=== PATIENT | female | born 1960 | race Hispanic/Latino ===

== ENCOUNTER 2025-01-05 13:12 | Inpatient (IN) | payer BC, OTHER ==
[2025-01-05] MEDS ORDERED: NA CHLORIDE 0.9% 500 ML ONE (13:44)
[2025-01-05] MEDS ORDERED: ACETAMINOPHEN 500 MG TAB ONE (13:44)
[2025-01-05 14:30] LABS: Specific Gravity > 1.030 (1.005-1.030); Sqamous Epithelial <5 /HPF (None Seen); Urine Bacteria <20 /HPF (<20); Urine Bilirubin NEGATIVE (Negative); Urine Blood Negative (Negative); Urine Clarity Clear (Clear); Urine Color Light-Yellow (Yellow); Urine Culture Reflex Order REFLEXED; Urine Glucose 4+ (Over) (Negative); Urine Ketones TRACE (Negative); Urine Microscopic Reflex YN ORDER UMIC; Urine Mucus Slight /HPF (None Seen); Urine Nitrite NEGATIVE (Negative); Urine Protein NEGATIVE (Negative); Urine Urobilinogen Normal (Normal); Urine pH 5.5 (5.0-7.0)
[2025-01-05 14:37] LABS: Albumin 3.6 g/dL (3.4-5.0); Albumin/Globulin Ratio 0.9 (1.1-1.8); Bilirubin Total 0.5 mg/dL (0.2-1.0); Globulin 3.9 g/dL (2.3-3.5); Protein, Total 7.5 g/dL (6.4-8.2)
[2025-01-05 14:59] LABS: Absolute Basophils 0.1 K/uL (0-0.5); Absolute Eosinophils 0.2 K/uL (0-0.5); Absolute Lymphocytes (CBC) 1.2 K/uL (0.7-4.9); Absolute Monocytes 0.5 K/uL (0.1-1.3); Absolute Neutrophil 8.2 K/uL (1.8-8.0); Basophils % 1.1 % (0-1.3); Eosinophils % 1.9 % (0-4.4); Hematocrit 40.5 % (36.0-45.0); Hemoglobin 13.7 g/dL (12.0-15.0); Lymphocytes % 11.7 % (15.3-44.8); MCH 29.1 pg (27.0-35.0); MCHC 33.9 g/dL (32.0-36.0); MCV 85.7 fL (80-100); MPV 8.1 fL (7.6-11.3); Monocytes % 5.3 % (3.3-12.3); Nucleated Red Blood Cells % 0.1 % (0-0); Platelets 217 thou/uL (152-406); RBC Red Blood Cell Count 4.72 M/uL (3.86-4.86); Red Cell Distribution Width 13.5 % (12.1-15.2)
--- NOTE | 2025-01-05 16:03 | RAD REPORT ---
EXAMINATION: UPPER EXTREMITY VENOUS UNILATE CLINICAL INDICATION: Female, 64 years old. [facility] MAIN Pain;Swelling Bed Name: 5 TECHNIQUE: Complete venous duplex sonography of the right upper extremity was performed. The examinat ion included compression for vein patency, color Doppler imaging and flow augmentation in response to distal compression of the internal jugular, brachiocephalic, subclavian, axillary, brachial, radia l, ulnar, cephalic and basilic veins. COMPARISON: No prior exam. FINDINGS: Duplex sonography testing of the veins of the right upper extremity is completed. Color flow imaging shows all veins to be compressible with appropriate color filling. Pulsatile and phasic flow is present within the upper extremity deep and superficial veins examined. Complex fluid collection with marginal soft tissue nodularity and hypervascularity along the medial upper arm measuring 3.3 x 2.1 cm in greatest dimensions. IMPRESSION: There is no deep vein or superficial vein thrombosis. Complex fluid collection underlying the area of palpable abnormality in the medial upper arm up to 3. 3 cm, may represent a developing abscess or seroma.
--- NOTE | 2025-01-05 16:22 | EDPHYS ---
Physician Documentation [facility] Name: Clementine Rodrigues Age: 64 yrs Sex: Female : 1960 Arrival Date: 01/05/2025 Time: 13:12 Bed 5 Private MD: ED Physician Anusha Allen HPI: 01/05 13:29 This 64 yrs old Female presents to ER via Unassigned with complaints of Arm sp3 Pain, Breathing Difficulty, Fever. 13:29 64-year-old female with history of hypertension, hyperlipidemia, diabetes now presents sp3 to the ED with chief complaint right medial distal upper arm swelling, erythema for 4 days after potentially having insect bite or some other event that occurred on . Patient saw her PCP on Monday who started Keflex. Subsequent to that patient swelling has continued to increase coupled with pain coupled with fever. She denies any other symptoms including headache, neck pain, URI symptoms, or [employer] symptoms, abdominal pain, vomiting, diarrhea, redness or rash anywhere else, prolonged immobilization, prior DVT or PE, travel history, known sick contacts, known allergies, or any other signs or symptoms on ROS at this time. Patient sees Dr. Jeannine Gaytan as PCP.. Historical: - Allergies: 13:36 No Known Allergies; hb - Home Meds: 13:36 Ozempic 0.25 mg or 0.5 mg (2 mg/3 mL) subcutaneous Pen Injector every week [Active]; hb ezetimibe-simvastatin 10-20 mg oral tablet daily [Active]; lisinopril-hydrochlorothiazide 20-12.5 mg oral tablet daily [Active]; cephalexin 500 mg Oral capsule [Active]; Jardiance 25 mg oral tablet daily [Active]; paroxetine HCl 20 mg oral tablet daily [Active]; - PMHx: 13:36 HTN; hb 13:39 DM2; hb - PSHx: 13:36 section; x 2; Appendectomy; hb - Immunization history:: Adult Immunizations. - Infectious Disease History:: Denies. - Social history:: Smoking status: Patient denies any tobacco usage or history of. ROS: 13:30 Eyes: Negative for injury, pain, redness, and discharge, ENT: Negative for injury, sp3 pain, and discharge, Neck: Negative for injury, pain, and swelling, Cardiovascular: Negative for chest pain, palpitations, and edema, Respiratory: Negative for shortness of breath, cough, wheezing, and pleuritic chest pain, Abdomen/GI: Negative for abdominal pain, nausea, vomiting, diarrhea, and constipation, Back: Negative for injury and pain, Neuro: Negative for headache, weakness, numbness, tingling, and seizure, Psych: Negative for depression, anxiety, suicide ideation, homicidal ideation, and hallucinations, Allergy/Immunology: Negative for hives, rash, and allergies, Endocrine: Negative for neck swelling, polydipsia, polyuria, polyphagia, and marked weight changes, Hematologic/Lymphatic: Negative for swollen nodes, abnormal bleeding, and unusual bruising, 13:30 All other systems are negative, sp3 Exam: 13:31 Constitutional: This is a well developed, well nourished patient who is awake, alert, sp3 and in no acute distress. Head/Face: Normocephalic, atraumatic. Eyes: Pupils equal round and reactive to light, extra-ocular motions intact. Lids and lashes normal. Conjunctiva and sclera are non-icteric and not injected. Cornea within normal limits. Periorbital areas with no swelling, redness, or edema. Neck: Trachea midline, no thyromegaly or masses palpated, and no cervical lymphadenopathy. Supple, full range of motion without nuchal rigidity, or vertebral point tenderness. No Meningismus. Chest/axilla: Normal chest wall appearance and motion. Nontender with no deformity. No lesions are appreciated. Cardiovascular: Regular rate and rhythm with a normal S1 and S2. No gallops, murmurs, or rubs. Normal PMI, no JVD. No pulse deficits. Respiratory: Lungs have equal breath sounds bilaterally, clear to auscultation and percussion. No rales, rhonchi or wheezes noted. No increased work of breathing, no retractions or nasal flaring. Abdomen/GI: Soft, non-tender, with normal bowel sounds. No distension or tympany. No guarding or rebound. No evidence of tenderness throughout. Back: No spinal tenderness. No costovertebral tenderness. Full range of motion. Neuro: Awake and alert, GCS 15, oriented to person, place, time, and situation. Cranial nerves II-XII grossly intact. Motor strength 5/5 in all extremities. Sensory grossly intact. Cerebellar exam normal. Normal gait. Psych: Awake, alert, with orientation to person, place and time. Behavior, mood, and affect are within normal limits. 13:31 Musculoskeletal/extremity: Patient with swelling, redness and warmth in the right distal upper arm proximal to the medial epicondyle of approximately 4 cm in diameter. Distal neurovascular exam is normal. No bony pain. Full range of motion in arm noted.. Vital Signs: 13:32 BP 158 / 91; Pulse 108; Resp 15; Temp 101.9(O); Pulse Ox 96% on R/A; Weight 89.36 kg; hb Height 5 ft. 4 in. ; Pain 9/10; 15:35 BP 106 / 83; Pulse 92; Resp 18; Temp 99.1(O); Pulse Ox 97% on R/A; hb 16:21 BP 112 / 76; Pulse 90; Resp 16; Pulse Ox 97% on R/A; hb 17:28 BP 131 / 96; Pulse 97; Resp 17; Pulse Ox 97% on R/A; hb 13:32 Body Mass Index 33.81 (89.36 kg, 162.56 cm) hb 13:32 Pain Scale: Adult hb MDM: 13:25 Medical Screening Exam initiated sp3 13:35 Data reviewed: vital signs, nurses notes, lab test result(s), radiologic studies. ED sp3 course: 64-year-old female with right arm pain, fever and swelling. Differential diagnosis includes DVT and localized cellulitis. No induration or bite jasbir or any symptoms noted. Patient not having chest pain or shortness of breath and clinically I am not highly suspicious of PE. Will obtain ultrasound right upper extremity and general labs and treat fever. Disposition pending workup and patient course.. 01/05 13:37 Order name: Blood Culture Adult (2) sp3 01/05 13:37 Order name: CBC with Diff; Complete Time: 15:20 sp3 01/05 13:37 Order name: CMP; Complete Time: 14:56 sp3 01/05 13:37 Order name: Lactate w/ 2H reflex if indic.; Complete Time: 14:56 sp3 01/05 14:06 Order name: Urinalysis w/ reflexes; Complete Time: 14:56 eb 01/05 14:52 Order name: Urine Culture EDAL 01/05 17:09 Order name: Basic Metabolic Panel EDMS 01/05 17:09 Order name: Basic Metabolic Panel EDMS 01/05 17:09 Order name: Basic Metabolic Panel EDMS 01/05 17:09 Order name: Basic Metabolic Panel EDMS 01/05 17:09 Order name: Basic Metabolic Panel EDMS 01/05 17:09 Order name: Basic Metabolic Panel EDMS 01/05 17:09 Order name: Basic Metabolic Panel EDMS 01/05 17:09 Order name: Basic Metabolic Panel EDMS 01/05 17:09 Order name: Magnesium EDMS 01/05 17:09 Order name: Magnesium EDMS 01/05 17:09 Order name: Magnesium EDMS 01/05 17:09 Order name: Magnesium EDMS 01/05 17:09 Order name: Magnesium EDMS 01/05 17:09 Order name: Magnesium EDMS 01/05 17:09 Order name: Magnesium EDMS 01/05 17:09 Order name: Magnesium EDMS 01/05 17:09 Order name: Phosphorus EDMS 01/05 17:09 Order name: Phosphorus EDMS 01/05 17:09 Order name: Phosphorus EDMS 04 17:09 Order name: Phosphorus EDMS 04 17:09 Order name: Phosphorus EDMS 01/05 17:09 Order name: Phosphorus EDMS 04 17:09 Order name: Phosphorus EDMS 04 17:09 Order name: Phosphorus EDMS 04 17:09 Order name: CBC with Automated Diff EDMS 04 17:09 Order name: CBC with Automated Diff EDMS 04 17:09 Order name: CBC with Automated Diff EDMS 01/05 17:09 Order name: CBC with Automated Diff EDMS 04 17:09 Order name: CBC with Automated Diff EDMS 01/05 17:09 Order name: CBC with Automated Diff EDMS 04 17:09 Order name: CBC with Automated Diff EDMS 04 17:09 Order name: CBC with Automated Diff EDMS 04 14:23 Order name: UPPER EXTREMITY VENOUS UNILATE; Complete Time: 16:07 EDMS 01/05 17:09 Order name: CONS Physician Consult EDMS 01/05 13:37 Order name: IV Saline Lock - Large Bore; Complete Time: 14:08 sp3 01/05 13:37 Order name: Labs collected and sent; Complete Time: 14:08 sp3 01/05 13:37 Order name: Vital Signs; Complete Time: 14:08 sp3 Administered Medications: 14:07 Drug: NS 0.9% IV 500 ml 500 ml IV at 1 bolus once; to be given as a bolus over 30 hb minutes Volume: 500 ml; Route: IV; Rate: 1 bolus; Site: left antecubital; 14:07 Drug: Acetaminophen PO 1000 mg PO once Route: PO; hb 16:45 Drug: Piperacillin-Tazobactam IVPB 3.375 grams IVPB once over 60 mins; (mix in NS 100 jb4 mL) Route: IVPB; Infused Over: 60 mins; Site: left antecubital; 17:45 Follow up: Response: No adverse reaction; IV Status: Completed infusion; IV Intake: jb4 100ml Disposition Summary: 01/05/25 16:21 Hospitalization Ordered Notes: Hospitalization Status: Observation sp3 Provider: Ronny Toledo sp3 Location: Telemetry/MedSurg (observation) sp3 Condition: Stable sp3 Problem: new sp3 Symptoms: have worsened sp3 Bed/Room Type: Standard sp3 Room Assignment: 205(01/05/25 17:27) em1 Diagnosis - Fever, right arm swelling versus abscess sp3 Forms: - Medication Reconciliation Form sp3 - SBAR form sp3 - Leadership Thank You Letter sp3 Signatures: Dispatcher [employer] em1 Stephanie Rincon RN RN Jenny Harley RN Pineda Santacruz RN RN jb4 Anusha Allen MD MD sp3 Corrections: (The following items were deleted from the chart) 13:30 13:30 Constitutional: Negative for fever, chills, and weight loss, Eyes: Negative for sp3 injury, pain, redness, and discharge, sp3 13:37 13:37 BLOOD CULTURE*+BA.LAB.BRZ ordered. EDMS EDMS 13:37 13:37 CBC+H.LAB.BRZ ordered. EDMS EDMS 13:37 13:37 COMPREHENSIVE METABOLIC PANEL+C.LAB.BRZ ordered. EDMS EDMS 13:37 13:37 LACTATE+C.LAB.BRZ ordered. EDMS EDMS 13:38 13:37 Extremity Venous Uni Ltd+US.RAD.BRZ ordered. EDMS EDMS 17:27 16:21 sp3 em1
--- NOTE | 2025-01-05 16:22 | ER ---
Nurse's Notes [facility] Name: Clementine Rodrigues Age: 64 yrs Sex: Female : 1960 Arrival Date: 01/05/2025 Time: 13:12 Bed 5 Private MD: Diagnosis: Fever, right arm swelling versus abscess Presentation: 01/05 13:32 Chief complaint: On cephalexin day 3 for sudden onset pain, redness, and swelling to hb RUE, fever started yesterday. Coronavirus screen: At this time, the client does not indicate any symptoms associated with coronavirus-19. Ebola Screen: No symptoms or risks identified at this time. Initial Sepsis Screen: Does the patient meet any 2 criteria? Temp <36.0*C (96.8*F)) or > 38.3*C (100.9*F). HR > 90 bpm. Yes Does the patient have a suspected source of infection? No. Patient's initial sepsis screen is negative. Risk Assessment: Do you want to hurt yourself or someone else? Patient reports no desire to harm self or others. Onset of symptoms was January 02, 2025. 13:32 Method Of Arrival: Ambulatory 13:32 Acuity: ALEXEI 2 hb Triage Assessment: 13:39 General: Appears in no apparent distress. uncomfortable, Behavior is calm, cooperative. hb Pain: Pain currently is 9 out of 10 on a pain scale. EENT: No signs and/or symptoms were reported regarding the EENT system. Neuro: Level of Consciousness is awake, alert, obeys commands, Oriented to person, place, time, situation. Cardiovascular: Patient's skin is warm and dry. Respiratory: Respiratory effort is even, unlabored, Respiratory pattern is regular, symmetrical. GI: No signs and/or symptoms were reported involving the gastrointestinal system. : No signs and/or symptoms were reported regarding the genitourinary system. Derm: Skin is pink, warm \T\ dry. redness and swelling noted to RUE. Musculoskeletal: No signs and/or symptoms reported regarding the musculoskeletal system. Historical: - Allergies: 13:36 No Known Allergies; hb - Home Meds: 13:36 Ozempic 0.25 mg or 0.5 mg (2 mg/3 mL) subcutaneous Pen Injector every week [Active]; hb ezetimibe-simvastatin 10-20 mg oral tablet daily [Active]; lisinopril-hydrochlorothiazide 20-12.5 mg oral tablet daily [Active]; cephalexin 500 mg Oral capsule [Active]; Jardiance 25 mg oral tablet daily [Active]; paroxetine HCl 20 mg oral tablet daily [Active]; - PMHx: 13:36 HTN; hb 13:39 DM2; hb - PSHx: 13:36 section; x 2; Appendectomy; hb - Immunization history:: Adult Immunizations. - Infectious Disease History:: Denies. - Social history:: Smoking status: Patient denies any tobacco usage or history of. Screenin:[address] [facility] ED Fall Risk Assessment (Adult) History of falling in the last 3 months, ph including since admission No falls in past 3 months (0 pts) Confusion or Disorientation No (0 pts) Intoxicated or Sedated No (0 pts) Impaired Gait No (0 pts) Mobility Assist Device Used No (0 pt) Altered Elimination No (0 pt) Score/Fall Risk Level 0 - 2 = Low Risk Oriented to surroundings, Maintained a safe environment, Hourly rounding (assess needs \T\ fall precautionary measures) done. Abuse screen: Denies threats or abuse. Denies injuries from another. Nutritional screening: No deficits noted. Tuberculosis screening: No symptoms or risk factors identified. Assessment: 13:40 General: See triage assessment . hb 14:34 Reassessment: Patient appears in no apparent distress at this time. Patient and/or hb family updated on plan of care and expected duration. Pain level reassessed. Patient is alert, oriented x 3, equal unlabored respirations, skin warm/dry/pink. 15:32 Reassessment: Patient appears in no apparent distress at this time. Patient and/or hb family updated on plan of care and expected duration. Pain level reassessed. Patient is alert, oriented x 3, equal unlabored respirations, skin warm/dry/pink. 16:21 Reassessment: Patient appears in no apparent distress at this time. Patient and/or hb family updated on plan of care and expected duration. Pain level reassessed. Patient is alert, oriented x 3, equal unlabored respirations, skin warm/dry/pink. Vital Signs: 13:32 BP 158 / 91; Pulse 108; Resp 15; Temp 101.9(O); Pulse Ox 96% on R/A; Weight 89.36 kg; hb Height 5 ft. 4 in. ; Pain 9/10; 15:35 BP 106 / 83; Pulse 92; Resp 18; Temp 99.1(O); Pulse Ox 97% on R/A; hb 16:21 BP 112 / 76; Pulse 90; Resp 16; Pulse Ox 97% on R/A; hb 17:28 BP 131 / 96; Pulse 97; Resp 17; Pulse Ox 97% on R/A; hb 13:32 Body Mass Index 33.81 (89.36 kg, 162.56 cm) hb 13:32 Pain Scale: Adult hb ED Course: 13:16 Patient arrived in ED. al6 13:19 Anusha Allen MD is Attending Physician. sp3 13:29 Arm band placed on Patient placed in an exam room, on a stretcher. ph 13:36 Triage completed. hb 13:39 First set of blood cultures drawn by me. hb 13:40 Patient has correct armband on for positive identification. Bed in low position. Call hb light in reach. Provided Education on: tests, result times. 14:01 Inserted saline lock: 20 gauge in left antecubital area, using aseptic technique. Blood hb collected. Flushed with 10 mL NS. 14:01 Initial lab(s) drawn, by me, sent to lab. Second set of blood cultures drawn by me. hb 14:08 Blood Culture Adult (2) Sent. hb 14:08 CBC with Diff Sent. hb 14:08 CMP Sent. hb 14:08 Lactate w/ 2H reflex if indic. Sent. hb 15:11 UPPER EXTREMITY VENOUS UNILATE In Process Unspecified. EDMS 16:21 Ronny Toledo is Hospitalizing Provider. sp3 17:27 Jenny Harley, RN is Primary Nurse. hb Administered Medications: 14:07 Drug: NS 0.9% IV 500 ml 500 ml IV at 1 bolus once; to be given as a bolus over 30 hb minutes Volume: 500 ml; Route: IV; Rate: 1 bolus; Site: left antecubital; 14:07 Drug: Acetaminophen PO 1000 mg PO once Route: PO; hb 16:45 Drug: Piperacillin-Tazobactam IVPB 3.375 grams IVPB once over 60 mins; (mix in NS 100 jb4 mL) Route: IVPB; Infused Over: 60 mins; Site: left antecubital; 17:45 Follow up: Response: No adverse reaction; IV Status: Completed infusion; IV Intake: jb4 100ml Medication: 13:40 VIS not applicable for this client. hb Intake: 17:45 IV: 100ml; Total: 100ml. jb4 Outcome: 16:21 Decision to Hospitalize by Provider. sp3 18:21 Patient left the ED. jb4 Signatures: Dispatcher [employer] EDStephanie Floyd RN RN Jenny Harley RN RN Pineda Saunders RN RN jb4 Anusha Allen MD MD sp3 Elizabeth Morales6
[2025-01-05] MEDS ORDERED: PIPERACIL/TAZO 3.375 GM VIAL IV ONE (16:35)
[2025-01-05] MEDS ORDERED: NA CHLORIDE 0.9% 100 ML ONE (16:35)
[2025-01-05] MEDS ORDERED: GLUCAGON 1 MG/VIAL IV PRN (16:59)
[2025-01-05] MEDS ORDERED: D50W 25 GM/50 ML SYRINGE IV PRN (16:59)
[2025-01-05] MEDS: NA CHLORIDE 0.9% 1,000 ML IV SCH (17:00)
--- NOTE | 2025-01-05 17:14 | P.HP ---
Certification for Inpatient Patient admitted to: Inpatient With expected LOS: >2 Midnights Practitioner: I am a practitioner with admitting privileges, knowledge of patient current condition, hospital course, and medical plan of care. Services: Services provided to patient in accordance with Admission requirements found in Title 42 Section 412.3 of the Code of Federal Regulations Patient History Date of Service: 01/05/25 Reason for admission: Right upper extremity abscess vs seroma History of Present Illness: Clementine Rodrigues is a 64 year old female with pmhx DM-IDDM, HTN, hypothyroidism who presents with right elbow swelling that started on Monday. She reports being on a one week cruise and while driving home her elbow swelled quickly, She went to the doctor and started keflex on . Now she is running a fever, diaphoretic, body aches, and shaking. She denies SOB and chest pain. US right upper extremity reports "There is no deep vein or superficial vein thrombosis. Complex fluid collection underlying the area of palpable abnormality in the medial upper arm up to 3.3 cm, may represent a developing abscess or seroma" Laboratory evaluation significant for left shift neutrophils 80, Sodium 134, Serum glucose 208, UA with infectious process Rima will be admitted to hospitalist service for further evaluation of Right uppper extremity abscess vs seroma. Allergies No Known Allergies Allergy (Unverified 01/05/25 17:31) - Past Medical/Surgical History -: HTN -: DM-IDDM -: hypothyroidism -: appendectomy -: C section x2 - Family History Family History: Reviewed- Non-Contributory - Social History Smoking Status: Never smoker Alcohol use: No CD- Drugs: No Review of Systems Other: per HPI Physical Examination - Physical Exam General: Alert, In no apparent distress, Oriented x3 HEENT: Atraumatic, Normocephalic Neck: Supple, 2+ carotid pulse no bruit, JVD not distended Respiratory: Clear to auscultation bilaterally, Normal air movement Cardiovascular: Normal pulses, Regular rate/rhythm, Normal S1 S2 Capillary refill: <2 Seconds Gastrointestinal: Normal bowel sounds, Soft and benign Musculoskeletal: No clubbing, Other (right medial elbow swelling) Integumentary: No rashes Neurological: Normal speech, Normal tone - Studies Laboratory Data (last 24 hrs) 04/06/25 04/06/25 14:01 14:01 WBC 10.30 Hgb 13.7 Hct 40.5 Plt Count 217 Sodium 134 L Potassium 4.0 BUN 18 Creatinine 0.79 Glucose 208 H Total Bilirubin 0.5 AST 14 L ALT 24 Alkaline Phosphatase 91 Assessment and Plan - Plan Assessment and Plan Sepsis 2/2 Right upper extremity abscess vs seroma -Sepsis criteria HR 108, Temp 101.9, abscess to right elbow -Vancomycin, Cefepime, and doxycycline -gentle IVF -sepsis re-assessment -follow blood cultures -antiemetics -Dr. David consulted -NPO at midnight for surgical intervention in the AM UTI (POA) -follow urine culture -IV antibiotics same as above Diabetes mellitus-IDDM -accucheck with SSI -Reports using ozempic HTN Hypothyroidism -Will restart home medications once reconcilied DVT ppx SCD Full code LOS 2-3 days Discharge Plan: Home Plan to discharge in: 48 Hours - Advance Directives Does patient have a Living Will: No Does patient have a Durable POA for Healthcare: No
[2025-01-05] MEDS ORDERED: D10W 125 ML IV PRN (17:37)
[2025-01-05] MEDS: VANCOMYCIN 1 GM in NA CHLORIDE 0.9% 250 ML IVPB SCH (18:00)
[2025-01-05] MEDS: VANCOMYCIN 1.5 GM in NA CHLORIDE 0.9% 500 ML IVPB SCH (19:00)
[2025-01-05] MEDS: CEFEPIME 1 GM in NA CHLORIDE 0.9% 100 ML IV SCH (20:28)
--- NOTE | 2025-01-05 20:41 | CON ---
Date of Consultation: 01/05/2025 Reason For Service: Abscess, upper extremity cellulitis. History Of Present Illness: This is a case of a 64-year-old patient with history of diabetes, comes to us with cellulitis of the right elbow region including proximal forearm, distal medial arm. Etiol ogchristi of that is unknown. The only history that we have, she was in a cruise a week ago. Then, after that, came Monday, started to have the swelling of the elbow. The primary doctors started antibiotic s, did not improve. Then, patient was admitted with fever, diaphoretic, body aches and shaking and s he was admitted to the hospital with a working diagnoses of an abscess and cellulitis of the upper ar m. Surgical consult was obtained for incision and drainage. Past Medical History: Diabetes, hypothyroidism. Past Surgical History: Include appendectomy, C-sections. Social History: She does not smoke. She does not drink alcohol. Family History: Noncontributory. Medications: Reviewed. Allergies: NONE. Review of Systems: See HPI. 10 points are otherwise unremarkable. Physical Examination: Vital Signs: Reviewed. General: The patient is awake, alert. HEENT: Pupils are equal, reactive. Anicteric. Neck: Supple. Chest: Clear. Heart: S1, S2. Abdomen: Soft and depressible. Extremities: Over the right upper extremity, patient has a medial induration. It is about 4 x 5 cm at least. The induration was, what it could be the initial of fluctuation. No drainage in this area . No open wounds. This area correlated with the findings of the ultrasound, which shows no deep vei n thrombosis, but a fluid collection of about 3.3 cm over the area, which is palpated. Tender, red, and increased temperature. Assessment: This is a 64-year-old patient with a possible abscess of the right upper extremity, defi nitely cellulitis in that area, tender. The patient explained the options of incision and drainage w ith benefits, alternatives, and risks including, but not limited to infection, bleeding, damage to ad jacent structures, anesthesia complication, ND, and even . We are going to keep her n.p.o. afte r midnight. ARUNA/SU Voice ID: [id number] Report ID: [id number]
[2025-01-05] MEDS ORDERED: PIPER TAZO 3.375 GM in NA CHLORIDE 0.9% 100 ML IV SCH (21:00)
[2025-01-05] MEDS: DOXYCYCLINE 100 MG in NA CHLORIDE 0.9% 100 ML IVPB SCH (21:00)
[2025-01-05] MEDS: INSULIN REGULAR (HUMAN) 100 UNIT/ML SQ SCH (21:00)
[2025-01-05 21:05] VITALS: BMI 33.7
[2025-01-05] MEDS ORDERED: MORPHINE 2 MG/ML SYR IV PRN (22:29)
[2025-01-05] MEDS: VANCOMYCIN 500 MG/VIAL ONE (22:52)
[2025-01-05] MEDS: VANCOMYCIN 1 GM/VIAL ONE (22:53)
[2025-01-05] MEDS: NA CHLORIDE 0.9% 250 ML ONE (22:54)
[2025-01-05] MEDS: HYDROCODONE/APAP 5/325 MG TAB PO PRN (23:13)
[2025-01-06 06:13] LABS: Absolute Basophils 0.1 K/uL (0-0.5); Absolute Eosinophils 0.3 K/uL (0-0.5); Absolute Lymphocytes (CBC) 1.5 K/uL (0.7-4.9); Absolute Monocytes 0.9 K/uL (0.1-1.3); Absolute Neutrophil 7.9 K/uL (1.8-8.0); Basophils % 0.6 % (0-1.3); Eosinophils % 2.4 % (0-4.4); Hematocrit 36.1 % (36.0-45.0); Hemoglobin 12.3 g/dL (12.0-15.0); Lymphocytes % 14.2 % (15.3-44.8); MCH 29.2 pg (27.0-35.0); MCHC 34.2 g/dL (32.0-36.0); MCV 85.3 fL (80-100); MPV 8.3 fL (7.6-11.3); Monocytes % 8.5 % (3.3-12.3); Neutrophils % 74.3 % (41.7-73.7); Nucleated Red Blood Cells % 0.1 % (0-0); Platelets 199 thou/uL (152-406); RBC Red Blood Cell Count 4.23 M/uL (3.86-4.86); Red Cell Distribution Width 13.5 % (12.1-15.2)
[2025-01-06 06:24] LABS: Anion Gap 10.9 mEq/L (5.0-15.0); Magnesium 2.2 mg/dL (1.6-2.4); Phosphorus 3.1 mg/dL (2.5-4.9); Potassium 3.9 mEq/L (3.5-5.1)
[2025-01-06] MEDS: ACETAMINOPHEN 325 MG TABLET PO PRN (08:04)
[2025-01-06] MEDS ORDERED: MIDAZOLAM HCL 2 MG/2 ML INJ ONE (10:12)
[2025-01-06] MEDS ORDERED: KETOROLAC 30 MG/ML INJ ONE (10:12)
[2025-01-06] MEDS ORDERED: FENTANYL CITR 100 MCG/2 ML ONE (10:12)
[2025-01-06] MEDS ORDERED: propofoL 200 MG/20 ML VIAL IV ONE (10:12)
[2025-01-06] MEDS ORDERED: LIDOCAINE 1% MPF 5 ML VIAL ONE (10:12)
[2025-01-06] MEDS ORDERED: ONDANSETRON 4 MG/2 ML VIAL ONE (10:12)
[2025-01-06] MEDS: BUPIVACAINE 0.5% PF 10 ML VIAL ONE (11:30)
--- NOTE | 2025-01-06 12:02 | P.BOP ---
Preoperative diagnosis: right upper arm abscess Postoperative diagnosis: same Primary procedure: Incision & drainage of right upper arm abscess 4cm Estimated blood loss: 10cc Specimen: culture Findings: as above Complications: None Drain(s): Other (1/" packing) Transferred to: Recovery Room Condition: Good
[2025-01-06 12:12] VITALS: O2SAT 96
[2025-01-06] MEDS: VANCOMYCIN 1.5 GM in NA CHLORIDE 0.9% 500 ML IVPB SCH (12:27)
--- NOTE | 2025-01-06 12:37 | P.PN ---
Date of Service: 01/06/25 Subjective: NO acute events overnight Still with erythema/pain to RUE ROS: 10 point ROS as noted above, otherwise negative Physical exam GEN: Alert, oriented, NAD HEENT: Normal conjunctiva, sclera anicteric CV: Regular rate and rhythm, no edema Pulm: Nonlabored respirations on room air ABD: Soft, nontender, nondistended MSK: No joint tenderness Integumentary: Erythema and tenderness to RUE Neuro: Normal speech, normal affect Vitals reviewed Assessment and Plan Sepsis 2/2 Right upper extremity abscess -Vancomycin, Cefepime, and doxycycline -gentle IVF -Follow blood cultures -Dr. Hill consulted -S/P I&D 01/06- cultures obtained intraoperative UTI (POA) -follow urine culture -IV antibiotics same as above Diabetes mellitus-IDDM -accucheck with SSI -Reports using ozempic HTN Hypothyroidism -Will restart home medications once reconcilied DVT ppx SCD Full code LOS 2-3 days Discharge Plan: Home Plan to discharge in: 48 Hours Time Spent Managing Pts Care (In Minutes): 35 <Efrain Antony Delroy - Last Filed: 01/06/25 12:37> Patient seen and examined, plan of care discussed with Efrain Antony. Status post elbow abscess I&D by Dr. Hill. Continue antibiotics, follow elbow deep tissue wound culture. Blood cultures have yielded no growth Possible discharge in a.m. According to Dr. Astudillo's patient has an appointment at the wound care center next week Monday01/14/25. <bernardo austin - Last Filed: 01/06/25 15:37>
[2025-01-06] MEDS: POTASSIUM CL SA 10 MEQ TAB PO ONE (17:03)
[2025-01-07 04:38] LABS: Absolute Eosinophils 0.4 K/uL (0-0.5); Absolute Monocytes 0.6 K/uL (0.1-1.3); Basophils % 0.6 % (0-1.3); Eosinophils % 6.7 % (0-4.4); Hematocrit 31.6 % (36.0-45.0); Hemoglobin 10.9 g/dL (12.0-15.0); Lymphocytes % 16.9 % (15.3-44.8); MCH 29.7 pg (27.0-35.0); MCHC 34.5 g/dL (32.0-36.0); Monocytes % 9.8 % (3.3-12.3); Platelets 210 thou/uL (152-406); RBC Red Blood Cell Count 3.67 M/uL (3.86-4.86); Red Cell Distribution Width 13.4 % (12.1-15.2)
[2025-01-07 04:50] LABS: Magnesium 2.3 mg/dL (1.6-2.4); Phosphorus 2.9 mg/dL (2.5-4.9)
[2025-01-07 12:08] VITALS: BP 142/74; TEMP 100.1
--- NOTE | 2025-01-07 13:13 | P.DS ---
Admission Date: 01/05/25 Discharge Date: 01/07/25 Disposition: ROUTINE DISCHARGE Discharge Condition: GOOD Reason for Admission: Right upper extremity abscess vs seroma Brief History of Present Illness: Clementine Rodrigues is a 64 year old female with pmhx DM-IDDM, HTN, hypothyroidism who presents with right elbow swelling that started on Monday. She reports being on a one week cruise and while driving home her elbow swelled quickly, She went to the doctor and started keflex on . Now she is running a fever, diaphoretic, body aches, and shaking. She denies SOB and chest pain. US right upper extremity reports "There is no deep vein or superficial vein thrombosis. Complex fluid collection underlying the area of palpable abnormality in the medial upper arm up to 3.3 cm, may represent a developing abscess or seroma" Laboratory evaluation significant for left shift neutrophils 80, Sodium 134, Serum glucose 208, UA with infectious process Rima will be admitted to hospitalist service for further evaluation of Right uppper extremity abscess vs seroma. Hospital Course: Assessment Sepsis 2/2 Right upper extremity abscess UTI (POA) Diabetes mellitus-IDDM HTN Hypothyroidism Patient was admitted to the hospital for cellulitis/abscess of the right upper extremity. She underwent incision and drainage on 01/06 and has been doing well postoperatively. Her blood cultures showed no growth, deep wound cultures currently pending. White blood cell count within normal limits, afebrile. She stable for discharge and outpatient follow-up with general surgery in the wound healing center at this time. Patient has an appointment at the wound center with Dr. Hill for next week Home medication should be continued as previously prescribed Prescription for antibiotics and pain medication sent to the pharmacy Daily dressing change/wound packing with iodoform quarter-inch packing Vital Signs/Physical Exam: Temp Pulse Resp BP Pulse Ox 100.1 F 93 H 22 H 142/74 H 90 L 01/07/25 12:00 01/07/25 12:00 01/07/25 12:01/07/25 12:01/07/25 12:00 General: Alert, In no apparent distress, Oriented x3 HEENT: Atraumatic, PERRLA Neck: Supple, JVD not distended Respiratory: Clear to auscultation bilaterally, Normal air movement Cardiovascular: Regular rate/rhythm, Normal S1 S2 Gastrointestinal: Normal bowel sounds, No tenderness Musculoskeletal: No tenderness Integumentary: No rashes Neurological: Normal speech, Normal affect Laboratory Data at Discharge: WBC 6.00 thou/uL (4.3-10.9) 01/07/25 04:17 Hgb 10.9 g/dL (12.0-15.0) L D 01/07/25 04:17 Hct 31.6 % (36.0-45.0) L 01/07/25 04:17 Plt Count 210 thou/uL (152-406) 01/07/25 04:17 Sodium 139 mEq/L (136-145) 01/07/25 04:17 Potassium 4.0 mEq/L (3.5-5.1) 01/07/25 04:17 BUN 12 mg/dL (7-18) 01/07/25 04:17 Creatinine 0.50 mg/dL (0.55-1.02) L 01/07/25 04:17 Glucose 137 mg/dL (74-106) H 01/07/25 04:17 Phosphorus 2.9 mg/dL (2.5-4.9) 01/07/25 04:17 Magnesium 2.3 mg/dL (1.6-2.4) 01/07/25 04:17 Total Bilirubin 0.5 mg/dL (0.2-1.0) 01/05/25 14:01 AST 14 U/L (15-37) L 01/05/25 14:01 ALT 24 U/L (13-56) 01/05/25 14:01 Alkaline Phosphatase 91 U/L (45-117) 01/05/25 14:01 Home Medications: Empagliflozin [Jardiance] 25 mg PO DAILY 01/06/25 Ezetimibe/Simvastatin [Ezetimibe-Simvastatin 10-20 mg] 1 each PO DAILY 01/06/25 Lisinopril/Hydrochlorothiazide [Lisinopril-Hctz 20-12.5 mg Tab] 1 each PO DAILY 01/06/25 PARoxetine HCL [Paxil] 20 mg PO DAILY 01/06/25 Semaglutide [Ozempic] 0.25 mg SQ Q7D 01/06/25 Doxycycline Monohydrate 100 mg PO BID 7 Days #14 cap 01/07/25 Hydrocodone 5/APAP 325 [Peoa 5/325*] 1 tab PO Q6H PRN #15 tab 01/07/25 Smz./Tmp. [Bactrim Ds 800 MG/160 MG] 1 tab PO BID 7 Days #14 tab 01/07/25 New Medications: Smz./Tmp. [Bactrim Ds 800 MG/160 MG] 1 tab PO BID 7 Days #14 tab Doxycycline Monohydrate 100 mg PO BID 7 Days #14 cap Hydrocodone 5/APAP 325 [Peoa 5/325*] 1 tab PO Q6H PRN #15 tab PRN Reason: Pain Scale 5-7 (Moderate) Physician Discharge Instructions: Patient was admitted to the hospital for cellulitis/abscess of the right upper extremity. She underwent incision and drainage on 01/06 and has been doing well postoperatively. Her blood cultures showed no growth, deep wound cultures currently pending. White blood cell count within normal limits, afebrile. She stable for discharge and outpatient follow-up with general surgery in the wound healing center at this time. Patient has an appointment at the wound center with Dr. Hill for next week Home medication should be continued as previously prescribed Prescription for antibiotics and pain medication sent to the pharmacy Daily dressing change/wound packing with iodoform quarter-inch packing Diet: ADA Activity: Ad sadia Followup: Adal Hill MD [ACTIVE - CAN ADMIT] - 1 Week NONE,NONE [Primary Care Provider] - Time spent managing pt's care (in minutes): 45
== END 2025-01-07 12:54 | disposition home or self-care (01) | DRG 872 ==
LOC: ER 13:12 → ERHOLD 16:59 → 2ND 17:58
PROVIDERS: ADMIT Internal Medicine; ATTEND Hospitalist
PROC: 0X9B0ZZ Drainage of Right Elbow Region, Open Approach (ICD-10-PCS; principal; 2025-01-06 10:45)
DX: A41.9 Sepsis, unspecified organism (principal); L02.413 Cutaneous abscess of right upper limb; N39.0 Urinary tract infection, site not specified; L03.113 Cellulitis of right upper limb; I10 Essential (primary) hypertension; E78.5 Hyperlipidemia, unspecified; E03.9 Hypothyroidism, unspecified; E11.9 Type 2 diabetes mellitus without complications; Z79.84 Long term (current) use of oral hypoglycemic drugs; Z90.49 Acquired absence of other specified parts of digestive tract; Z79.899 Other long term (current) drug therapy
CPT/HCPCS: 36415; 80048; 80053; 80202; 81001; 82947; 83605; 83735; 84100; 85025; 87040; 87070; 87075; 87086; 87088; 87205; 93971; 96365; 99284; J0692; J2003; J2250; J2270; J2405; J2543; J2704; J3010; J3370; J7030; J7040; J7050